=== PATIENT | male | born 1955 | race Two or more races ===

== ENCOUNTER → 2024-07-10 | Outpatient (CLI) | payer OTHER, SELFPAY ==
[2024-07-10 11:03] LABS: Basophils % (Auto) 1 % (0-2.5); Eosinophils # (Auto) 0.2 Thou/mm3 (0.0-0.5); Eosinophils % (Auto) 2 % (0-10); Hematocrit 45.3 % (41.0-53.0); Hemoglobin 15.3 g/dL (13.5-16.0); Immature Granulocytes % (Auto) 1 % (0-0); Immature Granulocytes Auto 0.06 Thou/mm3 (0.00-0.00); Lymphocytes # (Auto) 0.9 Thou/mm3 (1.0-4.8); Lymphocytes % (Auto) 12 % (10-50); Mean Corpuscular HGB Conc 33.8 g/dl (31.0-37.0); Mean Corpuscular Hemoglobin 31.4 pg (25.0-35.0); Mean Corpuscular Volume 93 fL (80-100); Monocytes # (Auto) 0.5 Thou/mm3 (0.0-0.8); Monocytes % (Auto) 6 % (0-12); Neutrophils % (Auto) 79 % (37-80); Nucleated Red Blood Cell % 0 /100 WBC (0); Platelet Count 200 Thou/mm3 (140-440); RDW Standard Deviation 44.8 fL (35.1-43.9); Red Blood Count 4.87 Miln/mm3 (4.50-5.90); White Blood Count 7.7 Thou/mm3 (3.8-10.6)
[2024-07-10 11:15] LABS: Prostate Specific Antigen 0.65 ng/mL (0-4.00)
[2024-07-10 11:19] LABS: Glucose Estimated Average 177 mg/dL (80-131); Hemoglobin A1C 7.8 % Hgb (4.8-6.0)
[2024-07-10 11:20] LABS: Folate > 24.00 ng/mL (>5.38); Vitamin B12 950 pg/mL (211-911); Vitamin D 25 Hydroxy Total 45.8 ng/mL (7.3-40.2)
[2024-07-10 11:22] LABS: Alanine Aminotransferase 31 U/L (10-49); Albumin, Serum 4.8 gm/dL (3.4-4.8); Albumin/Globulin Ratio 2.4 (1.2-2.2); Alkaline Phosphatase 79 U/L (46-116); Anion Gap 8 (7-16); Aspartate Amino Transferase 24 U/L (0-34); BUN/Creatinine Ratio 18 Ratio (12-20); Bilirubin,Total 0.5 mg/dL (0.3-1.2); Blood Urea Nitrogen 18 mg/dL (9-23); Calcium 9.8 mg/dL (8.3-10.6); Calcium (Corrected) 9.8 mg/dL (8.5-10.1); Carbon Dioxide 23.7 mMol/L (20.0-31.0); Cardiac Risk Estimate 2.8 RATIO (4.0-6.7); Chloride 105 mMol/L (98-107); Cholesterol 131 mg/dL (132-200); Free T4 (Free Thyroxine) 1.17 ng/dL (0.89-1.76); Glucose 152 mg/dL (74-106); HDL Cholesterol 47 mg/dL (40-60); LDL Cholesterol,Calculated 37 mg/dL (0-130); Osmolality,Calculated 278 (275-295); Potassium 4.3 mMol/L (3.4-5.1); Sodium 137 mMol/L (136-145); Total Protein 6.8 gm/dL (5.7-8.2); Triglycerides 233 mg/dL (30-150); eGFR > 60 See Note
== END | disposition home or self-care (01) ==
PROVIDERS: PCP Specialist; Referring Provider Specialist; Visit Provider Specialist
DX: E11.9 Type 2 diabetes mellitus without complications (principal); M54.12 Radiculopathy, cervical region; E03.9 Hypothyroidism, unspecified; E78.00 Pure hypercholesterolemia, unspecified; I10 Essential (primary) hypertension; N40.1 Benign prostatic hyperplasia with lower urinary tract symptoms
CPT/HCPCS: 36415; 80053; 80061; 82306; 82607; 82746; 83036; 84153; 84439; 84443; 84481; 85025